=== PATIENT | male | born 1975 | race Caucasian/White ===

== ENCOUNTER 2025-06-13 13:35 | Emergency (ER) | payer SELFPAY ==
[2025-06-13 13:35] VITALS: BP 164/105; PULSE 106; RESP 14; TEMP 36.7; O2SAT 97; BMI 42.8
--- NOTE | 2025-06-13 14:00 | PC.NURSE ---
Nadia from social work in room speaking to pt
[2025-06-13 14:05] LABS: UR Morphine/Opiate cutoff 300 Negative (Negative); Ur Specific Gravity Normal (Normal); Urine MDMA Negative (Negative); Urine Methamphetamines Negative (Negative); Urine Tetrahydrocannabinol Negative (Negative); Urine Tricyclic Antidepressant Negative (Negative)
--- NOTE | 2025-06-13 14:42 | ED.PSYCH ---
HPI - Psych General Chief Complaint: Psychiatric Symptoms Stated Complaint: SI Time Seen by Provider: 06/13/25 13:48 Source: police Mode of arrival: Ambulatory History of Present Illness HPI Narrative: 50-year-old gentleman with a history of hypertension no prior history of diagnosis no prior suicide events or mental health diagnoses was [place] to stepping [place] the bridge. He is brought into the emergency department by the auto parker. He notes that he and his family just had huge financial turmoil, they are currently living in their van his had mentioned that perhaps she and their son should go stay in a usp which caused him even more anxiety. He is concerned that he might not get to see his son again and his was leaving him. Related Data Allergies Allergy/AdvReac Type Severity Reaction Status Date / Time No Known Drug Allergies Allergy Verified 06/13/25 13:53 Review of Systems Review of Systems Narrative: Pertinent positive and negative findings as per HPI Patient History Social History Smoking Status: Current every day smoker Smoking Status: Current every day smoker Exam Initial Vital Signs Initial Vital Signs: Vital Signs Temperature 98.0 F 06/13/25 13:35 Pulse Rate 106 H 06/13/25 13:35 Respiratory Rate 14 06/13/25 13:35 Blood Pressure 164/105 H 06/13/25 13:35 Pulse Oximetry 97 06/13/25 13:35 Oxygen Delivery Method Room Air 06/13/25 13:35 General: Healthy appearing, in no acute distress. Able to give a complete and coherent history. Well-nourished well-developed HEENT: Moist mucous membranes, normal sclera with reactive pupils, Neck: No JVD, supple Respiratory: Lungs are clear to auscultation, no wheezing no rales no rhonchi. Full and symmetrical air movement Cardiac: Regular rate and rhythm no murmurs Abdomen: Soft, nontender, no rebound or guarding, no flank pain Skin: Warm and dry, no rashes Neurologic: Grossly neurologically intact with no obvious asymmetries or abnormalities Extremities: No trauma, well perfused Psych: Cooperative, appropriate insight and affect, fluent speech denies suicidal ideation depression or continued thoughts of hurting himself Course Orders Ordered: ED Orders 06/13/25 13:49 Consult to DIRECTOR MEDICAL ECONOMICS - Harm Reduction Worker Routine Acetaminophen Stat COVID19 -Nasal RAPID Stat Complete Blood Count AUTO DIFF Stat Comprehensive Metabolic Panel Stat Ethanol (ETOH) Stat Salicylate Stat TSH w/ Reflex to FT4 Stat 06/13/25 13:50 Urine Drug Screen, Rapid Stat Vital Signs Vital signs: Vital Signs - 8 hr 06/13/25 13:35 06/13/25 14:51 Temperature 98.0 F Pulse Rate 106 H 96 H Respiratory Rate 14 20 Blood Pressure 164/105 H 141/83 H Pulse Oximetry 97 98 Oxygen Delivery Method Room Air Room Air MDM - Psych Lab Data Labs: Lab Results 06/13/25 Range/Units 13:50 U Opiates 300ng/mL cut Negative (Negative) Ur Oxycodone Screen Negative (Negative) Urine Methadone Screen Negative (Negative) Ur Barbiturates Screen Negative (Negative) U Tricyclic Antidepress Negative (Negative) Ur Phencyclidine Scrn Negative (Negative) Ur Amphetamines Screen Negative (Negative) U Methamphetamines Scrn Negative (Negative) Ur MDMA Scrn (Ecstasy) Negative (Negative) U Benzodiazepines Scrn Negative (Negative) Urine Cocaine Screen Negative (Negative) U Marijuana (THC) Screen Negative (Negative) Urine pH Normal (Normal) Urine Specific [place] Normal (Normal) Ur Creatinine Normal (Normal) Urine Dip Bedside Urine Glucose Negative Bedside Urine Bilirubin - Negative Bedside Urine Ketone - Negative Urine Specific [place] 1.010 Bedside Urine Occult Blood - Negative Bedside Urine pH 7.0 Bedside Urine Protein - Negative Bedside Urine Urobilinogen - Negative Bedside Urine Nitrite - Negative Bedside Urine Leukocytes - Negative Esterase [facility] Narrative Medical decision making narrative: 50-year-old gentleman with no prior history of depression, mental health disorder, suicide ideation or suicide attempts significant the despondent this afternoon. [place] the [place] he realized that his son and were far more important and that he could never actually jump off the bridge. He was returning to the car when he was stopped by a auto parker and brought to the emergency department. He states that the immediate concern has passed, he at this point is not suicidal he has no further plan he has solid reasons and he would not hurt himself. He was seen and evaluated by our nursing home social worker, we were able to use money from our Foundation to help with housing for the next couple of days, he has the ability to follow up with the [facility] and they believe they likely will have housing available, he is given a gift certificate to purchase some food. He talked to his and clearly has significance. I believe this truly was an acute situational disturbance. His [place] suicide Score is high based on the fact that he did consider and was walking toward the bridge however, with current plan and social support he seems extraordinarily pleased and again very clearly contracts for safety. He is safe for discharge Discharge Plan Departure Patient Disposition: Home Clinical Impression: Acute situational disturbance, Suicidal ideation, Housing instability Instructions: DI for Suicidal Ideation-Adult Activity Restrictions/Additional Instructions: Thank you for coming in today I am so sorry that your situation has gotten so frustrating that suicide was even something that you can consider. I am so glad you did not follow through. You have have spoken with our nursing home social worker, she has arranged for room for you and your family at the [facility]. You simply need to arrive they are expecting you you will need to show ID, no money we will be required Please do make sure that you are contacting the family sharon early next week If you find that you are getting worse or develop any new symptoms, please feel free to return to the emergency department for further evaluation. Stand Alone Forms: Patient Portal/API
[2025-06-13 14:51] VITALS: BP 141/83; PULSE 96; RESP 20; O2SAT 98
--- NOTE | 2025-06-17 14:52 | CM.SWNOTE ---
STABLE ATTENDANT ED Assessment-corrected Pt presented to the ED via [facility] PD/EMS after [place] was [place] with suicidal ideation. Pt had already realized that he did not want to , and was heading back to his van when the PD arrived. Pt had called his prior to going out on the bridge, told her he loved her and their 4-year old son, and said his goodbyes. She then called 911 and PD was dispatched to the bridge. Precipitating Event( Pt and his have been recently made homeless after s) a safety situation involving their landlord. 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 Right before he went to the bridge, he misunderstood his when she told him she was trying to get into a mcc with her son. He had thought that she meant he was taking their son and leaving him, so became acutely suicidal and drove to the bridge. He realized after he called her that he had misunderstood, and that he did not want to , and wanted to live for his family. He was no longer suicidal by the time the [facility] PD arrived. He had not had prior attempts in the past. Patient Strengths Actively working and doing everything he can to better his life for his family, loves his family, values his own life, and understands that he felt a profound hopelessness that he could not at the time see his way forward from. Current Behavioral N/A Health Provider(s) Include Facility, Provider, Ph. # Psych. Hx Mental N/A Health and Chemical Dependency Family Hx of None Behavioral Abuse Psychiatric N/A Hospitalizations ( date(s)/location) Psychosocial He had already made contact with the [facility] information [facility] and is wanting to get involved in their Support Systems supportive program for transitional housing. School/Work Works any odd jobs he can. Legal Matters - N/A Outstanding Issues Orientation (Person/ Oriented x4. Place/Time) Stated Mood Grateful, tearful, relieved. Affect (Congruent yes with Mood?) Thought Content - Congruent thought processes and stable mood, other than Specify/Describe being tearful out of gratitude of the assistance that Obsessions, he received in the ED. Delusions, Hallucinations Thought Processes ( Goal directed, appropriate to situation. Logical-Coherent- Goal Directed- Detailed-Tangential- Circumstantial- Logical-Disorganized -Thought Blocking) Speech (Normal-Slow- Normal Thebyev-Kaxcw-Dsfr- Loud-Pressured) Motor (Normal- Normal Yptvyilup-Tvyg-Jfaxf ) Insight (Good-Fair- Good Poor/Limited) Judgement (Good-Fair Good -Poor/Limited) Impulse Control ( Adequate Adequate-Impaired) Memory (Immediate- Intact Recent-Remote, Impaired-Intact) Concentration ( Intact Intact-Impaired) Attention (Intact- Intact Impaired) Behavior ( Appropriate Appropriate- Inappropriate) Suicidal Ideation ( No Plan) Homicidal Ideation ( No Plan) Intervention STABLE ATTENDANT met with pt for thorough assessment of suicidal ideation and impulse intent to complete suicide. Provided supportive counseling and problem solving re: next steps for stabilization. Pt is no longer suicidal and denies any lingering thoughts of self-harm. His and son were en route to the ED following this assessment. RA Plan No need for DCR or placement intervention. This STABLE ATTENDANT was able to utilize the [employer] for a reimbursement for [employer] reservations made to cover tonight (Monday), Sat, and Sun (June 13) at the [facility]. He will plan to meet with the [facility] on Monday morning for an intake appointment. STABLE ATTENDANT also called the [facility] and left a message advocating in his behalf. The [facility] was also able to provide a food gift card to [facility], and our kitchen staff provided sack lunch meals for the family for this evening. No further STABLE ATTENDANT needs are identified at this time.
== END 2025-06-13 15:34 | disposition home or self-care (01) ==
PROVIDERS: Emergency Provider Emergency Medicine
DX: R45.851 Suicidal ideations (principal); F43.0 Acute stress reaction; Z59.819 Housing instability, housed unspecified
CPT/HCPCS: 80305; 81003; 99283